=== PATIENT | female | born 1965 | race Caucasian/White ===

== ENCOUNTER → 2020-07-13 08:08 | Outpatient (CLI) | payer OTHER, SELFPAY ==
--- NOTE | ~2020-07-13 | CT_ITS ---
EXAMINATION: CT abdomen pelvis wo/w con EXAM DATE: 07/13/2020 08:59 INDICATION: Gross hematuria. Kidney stones. TECHNIQUE: Spiral CT of the abdomen and pelvis was performed without contrast. The patient was then injected with small bolus intravenous Omnipaque 350, followed by delay of approximately 10 minutes to allow collecting system to opacify. A post contrast scan abdomen and pelvis was performed during inj ection of remaining contrast. A total of 130 cc intravenous contrast was administered. The dose-kyrie th product (DLP) for this examination was 2108.52 mGy-cm. The exposure was tailored according to pat ient size (auto mA exposure control), and iterative reconstruction (ASIR) was used as additional dose reduction technique. There is no prior study for comparison. FINDINGS: There is a nonobstructing left renal pelvic stone measuring 9 mm in greatest axial dimensio n. No ureteral stones or hydronephrosis. There is a left renal cyst measuring 1.5 cm. The kidneys e nhance symmetrically. There are no suspicious renal lesions. The calyces and opacified portions of ureters are unremarkable, without filling defects or focal suspicious strictures. Most of the left ur eter collapsed, not opacified at time of imaging. The bladder is unremarkable. The uterus is unremar kable. There is a hypodensity in the caudate lobe of liver measuring 1.1 cm consistent with a cyst. The spl een, pancreas, and adrenal glands are unremarkable. Gallbladder is unremarkable. No biliary obstruc tion. There is no retroperitoneal or pelvic lymphadenopathy. There is mild scattered arteriosclero tic disease. The appendix is normal. The stomach and small bowel are unremarkable. There is expected amount of c olonic stool. There is mild sigmoid colonic diverticulosis. There is no adjacent inflammatory change to suggest diverticulitis. No free intraperitoneal gas. The heart is normal in size. There are n o pericardial or pleural effusions. The lung bases are unremarkable. There are no osteoblastic or o steolytic lesions identified. Interbody fusion at the L3-4 level without subsidence. IMPRESSION: 1. Large nonobstructing left renal pelvic stone. 2. Mild sigmoid diverticulosis. Reviewed, dictated and finalized at location B. LIFTER
--- NOTE | ~2020-07-13 | XR_ITS ---
EXAMINATION: XR abdomen/kub 1V EXAM DATE: 07/13/2020 08:59 INDICATION: Gross hematuria . Kidney stone. TECHNIQUE: Frontal projection of the upper abdomen, frontal projection lower abdomen/pelvis for inter pretation. Correlation is made to CT abdomen pelvis same date. FINDINGS: There is left renal pelvic stone likely over a centimeter in size. This finding has been i ndicated, marked on the examination for review, clinical correlation. Nonobstructive bowel gas patter n. L4-5 lumbar fusion. There is no organomegaly. IMPRESSION: Large left renal pelvic stone. Reviewed, dictated and finalized at location B. CUTTER
[2020-07-13 08:36] LABS: Estimated Glomerular Filt Rate > 60
== END ==
PROVIDERS: PCP Family Medicine; Visit Provider Urology
DX: R31.0 Gross hematuria (principal); N20.0 Calculus of kidney; K57.30 Diverticulosis of large intestine without perforation or abscess without bleeding
CPT/HCPCS: 74018; 74178; Q9967

== ENCOUNTER → 2020-11-03 16:37 | Outpatient (CLI) | payer OTHER, SELFPAY ==
--- NOTE | ~2020-11-03 | XR_ITS ---
XR abdomen/kub 1V 11/03/2020 16:49 INDICATION: Constipation TECHNIQUE: KUB COMPARISON: 07/13/2020 FINDINGS: Bowel gas pattern is normal. There is no evidence of free air, mass, organomegaly, ascites or obstruction. No abnormal calculi are seen. The bones appear intact. There are surgical changes consistent with discectomy at L4-5. No acute osseous abnormality. IMPRESSION: 1: No acute abdominal abnormality identified. Reviewed, dictated and finalized at location A.
== END ==
PROVIDERS: Visit Provider Nurse Practitioner Family
DX: K59.00 Constipation, unspecified (principal)
CPT/HCPCS: 74018

== ENCOUNTER → 2022-08-22 13:30 | Outpatient (CLI) | payer OTHER, SELFPAY ==
--- NOTE | ~2022-08-22 | CT_ITS ---
EXAMINATION: CT abdomen pelvis wo con DATE: 08/22/2022 13:36 INDICATION: Right flank pain TECHNIQUE: Computed tomography (CT) of the abdomen and pelvis was performed without intravenous contr ast. Automated exposure control and iterative reconstruction technique were employed. The dose-length product was 680.97 mGy-cm. COMPARISON: 07/13/2020 FINDINGS: Lung bases are clear. Heart size is normal. Mild atherosclerotic coronary artery calcification. No pe ricardial or pleural effusion. Diffuse small bowel low-attenuation hepatic cysts, the largest measuri ng 2.6 cm at the caudate lobe.. Gallbladder, spleen, pancreas and bilateral adrenal glands are normal . 1.8 cm cyst at the upper pole of the left kidney. 2 mm cyst at the left ureteropelvic junction with no hydronephrosis. A few phleboliths in the pelvis. No other urolithiasis. Normal retrocecal appendi x. There is mild colonic diverticulosis with a sigmoid predominance. There is no adjacent inflammator y change to suggest diverticulitis. No bowel obstruction. Bladder is normal. Retroverted uterus and bilateral adnexa are unremarkable. No free intraperitoneal gas or fluid. No pathologically enlarged a bdominal or pelvic lymphadenopathy. Tiny fat-containing umbilical hernia. L4-L5 anterior spinal fusio n with interbody bone graft cages. IMPRESSION: 1. Nonobstructing 2 mm stone at the left ureteropelvic junction. 2. Diverticulosis. Reviewed, dictated and finalized at location L.
== END ==
PROVIDERS: PCP Family Medicine; Visit Provider Family Medicine
DX: N20.0 Calculus of kidney (principal); K57.30 Diverticulosis of large intestine without perforation or abscess without bleeding
CPT/HCPCS: 74176